=== PATIENT | male | born 1995 | race Caucasian/White ===

== ENCOUNTER 2022-10-21 00:25 | Emergency (ER) | payer SELFPAY ==
[~2022-10-21] VITALS: Ht 152.4 cm; Wt 47.6 kg
[2022-10-21 00:30] VITALS: BP_SYST 118
--- NOTE | 2022-10-21 00:35 | NUR ---
PT FROM HOME WITH C/O OF SORE THROAT X 2 DAYS. PT STATES IT WORSENED TODAY. PT WITH TEMP OF 100 TEMPORAL MADE AWARE. PT TO WAITING ROOM, ACCOMPANIED BY MOTHER.
--- NOTE | 2022-10-21 00:40 | NUR ---
DR. KELLER WITH PATIENT IN TRIAGE FOR MSE.
[2022-10-21] MEDS ORDERED: MED4 PO (00:52)
[2022-10-21 00:58] VITALS: BP_SYST 118
--- NOTE | 2022-10-21 00:58 | NUR ---
Patient given written and verbal discharge instructions and verbalizes understanding. ER DR. KELLER discussed with patient the results and treatment provided. Patient in stable condition. ID arm band removed. Rx of MEDROL given. Patient educated on pain management and to follow up with PMD. Pain Scale 0. Opportunity for questions provided and answered. Medication side effect fact sheet provided.
== END 2022-10-21 00:58 | disposition home or self-care (01) ==
LOC: SED 00:25
DX: J04.0 Acute laryngitis (principal); R49.1 Aphonia; R50.9 Fever, unspecified; Z79.899 Other long term (current) drug therapy
CPT/HCPCS: 99283